=== PATIENT | female | born 2005 | race Caucasian/White ===

== ENCOUNTER → 2025-06-30 | Outpatient (CLI) | payer SELFPAY ==
--- NOTE | 2025-06-30 13:32 | ECHOD_ITS ---
Reason For Study Reason For Study: PALPITATIONS Procedure This was a 2D Doppler, Color Flow transthoracic echocardiogram. Exam performed in department. Left Ventricle Normal LV size. Left ventricular systolic function is normal. The left ventricular ejection fraction is 60 %. No regional wall motion abnormalities noted. Right Ventricle Normal RV size. Normal systolic function. Atria Normal left atrium. Normal right atrium. Mitral Valve Normal mitral valve. Tricuspid Valve Normal tricuspid valve. Aortic Valve Normal aortic valve. Trisinus/trileaflet aortic valve. Pulmonic Valve Normal pulmonic valve. Great Vessels Normal aortic root. The pulmonary artery is normal size. Inferior vena cava collapse with respiration. Pericardium/Pleural No pericardial effusion. MMode/2D Measurements & Calculations LVIDd: 4.5 cm IVSd: 0.86 cm LVOT diam: 2.0 cm LVIDs: 2.7 cm LVPWd: 0.81 cm LVOT area: 3.2 cm2 RVDd: 3.4 cm FS: 40.0 % Ao root diam: 2.4 cm asc Aorta Diam: 2.4 cm LAV(MOD- bp): 35.6 ml LAV(MOD- bp) Indexed: 19.3 ml/m2 LAV(MOD- sp2): 35.7 ml LAV(MOD- sp4): 35.1 ml SV(MOD- sp4): 47.3 ml LVAd ap4: 27.5 cm2 LVAd ap2: 24.8 cm2 LVLd ap4: 8.1 cm LVLd ap2: 8.0 cm SI(MOD- sp4): 25.6 ml/m2 EDV(MOD-sp4): 75.2 ml EDV(MOD-sp2): 63.9 ml EDV(sp4-el): 78.9 ml EDV(sp2-el): 65.1 ml LVAs ap4: 14.8 cm2 LVAs ap2: 13.7 cm2 LVLs ap4: 6.7 cm LVLs ap2: 6.5 cm ESV(MOD-sp4): 27.9 ml ESV(MOD-sp2): 24.7 ml ESV(sp4-el): 27.8 ml ESV(sp2-el): 24.2 ml EF(MOD-sp4): 62.9 % EF(MOD-sp2): 61.3 % EF(sp4-el): 64.8 % SV(MOD-sp2): 39.2 ml SV(sp4-el): 51.2 ml Ao sinus diam: 2.7 cm SI(MOD-sp2): 21.2 ml/m2 Ao ST [place]: 1.9 cm LA dimension(2D): 3.3 cm LA A4 area: 14.6 cm2 TAPSE: 1.9 cm RA A4 area: 11.9 cm2 Time Measurements MV dec time: 0.18 sec Doppler Measurements & Calculations MV E max [place]: 86.8 cm/sec Lat Peak E' [place]: 19.7 cm/sec Med Peak E' [place]: 14.3 cm/sec MV A max [place]: 53.1 cm/sec E/E' lat: 4.4 E/E' med: 6.1 MV E/A: 1.6 MV dec slope: 472.8 cm/sec2 Ao V2 max: 161.6 cm/sec LV V1 max: 121.8 cm/sec Ao max P.5 mmHg LV V1 max P.9 mmHg Ao V2 mean: 110.2 cm/sec LV V1 mean P.1 mmHg Ao mean P.6 mmHg LV V1 mean: 81.5 cm/sec Ao V2 VTI: 32.1 cm LV V1 VTI: 22.8 cm AV (velocity ratio): 0.71 JJ(I,D): 2.3 cm2 JJ(V,D): 2.4 cm2 SV(LVOT): 72.2 ml PA V2 max: 109.7 cm/sec TR max [place]: 182.0 cm/sec TR max P.3 mmHg ECHO/Echo Complete Interpretation Summary Normal LV size. Left ventricular systolic function is normal. The left ventricular ejection fraction is 60 %. Structurally normal valves. Ordering Physician: Abhijit Bennett Referring Physician: Abhijit Bennett MD Performed By: Lizbet Chavis RDCS
== END | disposition home or self-care (01) ==
PROVIDERS: Referring Provider Internal Medicine Cardiovascular Disease; Visit Provider Internal Medicine Cardiovascular Disease
DX: R00.2 Palpitations (principal)
CPT/HCPCS: 93225; 93226; 93306